=== PATIENT | female | born 1980 | race Caucasian/White ===

== ENCOUNTER 2016-06-28 05:47 | Day surgery (SDC) | payer BC ==
--- NOTE | ~2016-06-28 | OP ---
Record Of Operation [address] [id number] [place]. [address] NAME: JAZMIN MARTINS : 82 STATUS : [facility] PAT#: [id number] AGE: 36 ADM/REG DATE : 06/28/16 MR#: [id number] REPORT SERV DATE: 06/28/16 DICTATED BY: ANGELA MOON DATE: 06/28/16 REPORT STATUS : Draft TRANSCRIBED BY: MODL DATE: 06/28/16 DATE OF PROCEDURE: 06/28/2016 PREOPERATIVE DIAGNOSES: 1. Left chronic otitis media. 2. Left chronic otorrhea. 3. Left cholesteatoma. POSTOPERATIVE DIAGNOSES: 1. Left chronic otitis media. 2. Left chronic otorrhea. 3. Left cholesteatoma. PROCEDURE: 1. Left revision tympanomastoidectomy. 2. NIM monitoring of cranial nerve 7. SURGEON: Angela Moon M.D. ANESTHESIA: General. COMPLICATIONS: None. COUNTS: All counts corrects following the procedure. ESTIMATED BLOOD LOSS: 5 mL. PREOPERATIVE INFORMED CONSENT: We discussed the risks and benefits of surgery including but not limited to bleeding, infection, possible CSF leak, possible facial nerve injury, possible persistent otorrhea despite surgery, possible hearing loss including total deafness, possible postoperative taste distortion, possible need for revision surgery. She understands the risks and benefits of surgery and consent is on the chart. PROCEDURE IN DETAIL: The patient was brought to the operative suite and was placed on the operating table in the supine position. The ear and postauricular area were cleaned and prepped in usual sterile fashion. A standard tympanomeatal flap incision was made using a [place] elevator and the flap was raised using a lancet knife down to the inferior annulus where the middle ear space was entered using a Ortiz Needle, followed superiorly where the previous incus interposition graft was encountered. This was carefully dissected away from the pars tensa using a 45- degree sharp pick. It was noted before prepping, there was a copious amount purulent drainage draining from the ear canal itself. A culture was taken and sent for Gram stain and C and S. The ear canal was irrigated copiously with sterile saline. The ear canal and postauricular region were Record Of Operation [place] [id number] [facility] [place]. [address] NAME: JAZMIN MARTINS : 82 STATUS : [facility] PAT#: [id number] AGE: 36 ADM/REG DATE : 06/28/16 MR#: [id number] REPORT SERV DATE: 06/28/16 DICTATED BY: ANGELA MOON DATE: 06/28/16 REPORT STATUS : Draft TRANSCRIBED BY: LAYLA DATE: 06/28/16 injected with approximately 4 mL of 1% lidocaine and 1:100,000 epinephrine for hemostasis. Also noted to be a preoperative postauricular draining fistula with a significant of granulation tissue. This was marked out and then an incision was performed using a 15 blade scalpel. Immediately in the subcutaneous tissues, there was noted to be an extensive amount of granulation tissue. This was also cultured and sent for Gram stain and C and S. Electrocautery was used to raise a skin flap posteriorly and anteriorly, raising the pinna off the underlying mastoid fascia. The granulation tissue was followed into the mastoid cavity and the mastoid fascia was lifted up using a [place] elevator. The extensive granulation tissue was adherent to the surrounding bone. This was carefully dissected off using a Rigoberto elevator and a duckbill elevator. The entire mastoid cavity was filled with this granulation tissue, which was removed piece by piece and then sent for permanent pathology. Working into the antrum and the epitympanum, there was again extensive granulation tissue and fibrosis, which was systematically removed, revealing the tympanomeatal flap that was raised. Then working between the epitympanum and the middle ear space, the head of the malleus was visualized. There was no obvious cholesteatoma, but there was some granulation tissue around this and the epitympanum was removed completely. The facial nerve was noted to be covered by bone and intact. The NIM stimulator was used to stimulate the nerve and stimulated at 0.8 in the tympanic segment and in the mastoid segment. The mastoid cavity was then copiously irrigated with sterile saline. The wound was closed in layers using 3-0 Vicryl as well as 4-0 nylon suture for the skin. The tympanomeatal flap was laid back down into position. There was no graft necessary to close. The tympanic membrane was intact. The external auditory canal was then filled with Gelfoam moistened with saline out to the lateral aspect of the ear canal, followed by bacitracin ointment, a cotton ball, and a standard mastoid dressing. COURTNEY/LAYLA Angela Moon M.D. / [id number] CC: Angela Moon M.D.
[~2016-06-28 05:47] MED LIST: *DENIES
== END 2016-06-28 17:43 | disposition home or self-care (01) ==
LOC: SDC 05:47
PROVIDERS: Otolaryngology
PROC: 09B60ZZ Excision of Left Middle Ear, Open Approach (ICD-10-PCS; 2016-06-28)
PROC: 0NB60ZZ Excision of Left Temporal Bone, Open Approach (ICD-10-PCS; principal; 2016-06-28 07:15)
DX: H71.22 Cholesteatoma of mastoid, left ear (principal); H66.92 Otitis media, unspecified, left ear; H92.12 Otorrhea, left ear; Z98.51 Tubal ligation status; Z98.890 Other specified postprocedural states; Z87.891 Personal history of nicotine dependence
CPT/HCPCS: 84703; 87015; 87070; 87075; 87102; 87116; 87205; 88304; 88305; A9270-GY; J0690; J1170; J2250; J2270; J2405; J3010